=== PATIENT | female | born 1975 | race Two or more races ===

== ENCOUNTER 2019-11-20 11:13 | Emergency (ER) | payer OTHER ==
[~2019-11-20] VITALS: Ht 175.3 cm; Wt 109.9 kg
[2019-11-20 11:23] VITALS: BP 184/105
--- NOTE | 2019-11-20 11:47 | NUR ---
pt recieved rx for gabapentin/steroids and got "pain shot" at her md last week for same, was told she has sciatica. as
[2019-11-20] MEDS ORDERED: KETOROLAC 30 MG/1 ML IM ONE (12:00)
[2019-11-20] MEDS ORDERED: METHOCARBAMOL 750 MG TABLET PO ONE (12:00)
[2019-11-20] MEDS ORDERED: KETOROLAC 30 MG/1 ML ONE (12:02)
[2019-11-20] MEDS ORDERED: METHOCARBAMOL 750 MG TABLET ONE (12:02)
[2019-11-20] MEDS ORDERED: HYDROmorphone 1 MG/ML, 1ML INJ IM ONE (13:30)
[2019-11-20] MEDS ORDERED: ONDANSETRON ODT 4 MG PO ONE (13:30)
[2019-11-20] MEDS ORDERED: HYDROmorphone 1 MG/ML, 1ML INJ ONE (13:36)
[2019-11-20] MEDS ORDERED: ONDANSETRON ODT 4 MG ONE (13:36)
--- NOTE | 2019-11-20 13:39 | NUR ---
meds per mar, pt will call for ride. as
== END 2019-11-20 14:24 | disposition home or self-care (01) ==
LOC: ED 14:00
DX: S39.012A Strain of muscle, fascia and tendon of lower back, initial encounter (principal); M51.16 Intervertebral disc disorders with radiculopathy, lumbar region; X58.XXXA Exposure to other specified factors, initial encounter; Y93.89 Activity, other specified; Y92.89 Other specified places as the place of occurrence of the external cause; Y99.8 Other external cause status
CPT/HCPCS: 72148; 96372; 99284; J1170; J1885; Q0162